=== PATIENT | female | born 1970 | race Two or more races ===

== ENCOUNTER → 2017-06-28 | Outpatient (CLI) | payer BC | END | disposition home or self-care (01) | LOC: MAMMO 09:48 | DX: R92.8 Other abnormal and inconclusive findings on diagnostic imaging of breast (principal); N64.4 Mastodynia | CPT/HCPCS: 77066 ==

== ENCOUNTER 2017-07-28 11:35 | Emergency (ER) | payer BC | END 2017-07-28 13:08 | disposition home or self-care (01) | LOC: ER 11:35 | DX: S69.91XA Unspecified injury of right wrist, hand and finger(s), initial encounter (principal); X58.XXXA Exposure to other specified factors, initial encounter; Y93.89 Activity, other specified; Y92.89 Other specified places as the place of occurrence of the external cause; Y99.8 Other external cause status | CPT/HCPCS: 29130; 73140; 99284 ==

== ENCOUNTER → 2019-06-08 | Outpatient (CLI) | payer BC ==
[2017-07-28 11:47] VITALS: BP 132/86
--- NOTE | 2019-06-08 13:56 | RAD ---
ANKLE LEFT 3V DATE: 06/08/2019 12:00 AM INDICATION: Pain after falling COMPARISON: None. FINDINGS: Bones: There is no evidence of acute fracture or dislocation. Joints: The ankle mortise is congruent. No widening of the distal tibiofibular syndesmosis. Miscellaneous: None. IMPRESSION: No evidence of acute fracture. Electronically signed by: Zeferino Matta MD (06/08/2019 1:53 PM) [id number]
--- NOTE | 2019-06-08 14:23 | RAD ---
PROCEDURE: SHOULDER 2+V LEFT, KNEE LEFT 3V STUDY DATE: 06/08/2019 CLINICAL INDICATION / HISTORY: Left shoulder pain after fall 2 days ago.. TECHNIQUE: AP internal and external rotation views with a Y- view were obtained. COMPARISON: None FINDINGS: No fracture, dislocation or bone destruction is identified. There are no degenerative changes at the left AC joint. No calcifications are seen in relation to the rotator cuff insertion. IMPRESSION: No acute osseous abnormality PROCEDURE: SHOULDER 2+V LEFT, KNEE LEFT 3V STUDY DATE: 06/08/2019 CLINICAL INDICATION / HISTORY: Left knee pain after fall 2 days ago. TECHNIQUE: AP, lateral, and tunnel views of the left knee. COMPARISON: None FINDINGS: The osseous structures are intact. The articular surfaces are smooth. The joint space is maintained. No intra-articular loose bodies. The alignment is within normal limits. The soft tissues are unremarkable. No obvious joint effusion. No radio-opaque foreign bodies are identified. IMPRESSION: No fracture or dislocation is identified. Electronically signed by: Megan Orr MD (06/08/2019 2:21 PM) [id number]
== END | disposition home or self-care (01) ==
LOC: RAD 11:10
PROVIDERS: ATTEND Internal Medicine
DX: M25.572 Pain in left ankle and joints of left foot (principal); M25.512 Pain in left shoulder; M25.562 Pain in left knee; W19.XXXA Unspecified fall, initial encounter; Y93.89 Activity, other specified; Y92.89 Other specified places as the place of occurrence of the external cause; Y99.8 Other external cause status
CPT/HCPCS: 73030; 73562; 73610

== ENCOUNTER → 2020-03-11 | Outpatient (CLI) | payer BC ==
[2017-07-28 11:47] VITALS: BP 132/86
--- NOTE | 2020-03-11 15:19 | RAD ---
DATE: 03/11/2020 9:13 AM EXAM: MAMMO ISMAEL SCREENING BILATERAL HISTORY: Screening COMPARISON: 06/28/2017 Bilateral CC and MLO views of the breasts were performed. Bilateral breast tomosynthesis was performed in CC and MLO projections. This study was interpreted with the benefit of Computerized Aided Detection (CAD). FINDINGS: Breast Density: SCATTERED The breast parenchyma shows scattered fibroglandular densities. Breast parenchyma level B No suspicious masses, microcalcifications or architectural distortion is present to suggest malignancy in either breast. The visualized axillae are unremarkable. IMPRESSION: No mammographic evidence of malignancy. BI-RADS CATEGORY: 1 NEGATIVE RECOMMENDED FOLLOW-UP: 12M 12 MONTH FOLLOW-UP Annual screening mammography is recommended, unless clinically indicated sooner based on symptoms or change in physical exam. PQRS compliance statement: Patient information was entered into a reminder system with a target due date for the next mammogram. Mammography is a sensitive method for finding small breast cancers, but it does not detect them all and is not a substitute for careful clinical examination. A negative mammogram does not negate a clinically suspicious finding and should not result in delay in biopsying a clinically suspicious abnormality. "Our facility is accredited by the [employer] Mammography Program."
== END ==
LOC: MAMMO 09:02
PROVIDERS: ATTEND Internal Medicine
DX: Z12.31 Encounter for screening mammogram for malignant neoplasm of breast (principal)
CPT/HCPCS: 77063; 77067

== ENCOUNTER → 2021-06-01 | Outpatient (CLI) | payer BC ==
[2017-07-28 11:47] VITALS: BP 132/86
--- NOTE | 2021-06-01 17:46 | RAD ---
Bilateral digital screening 2-D and 3-D (digital breast tomosynthesis) mammogram: Reason for examination: Routine screening. Comparison: Mammograms from 03/11/2020 and 06/28/2017. Interpretation was made with the benefit of CAD. FINDINGS: Breast density: Category A. Breast tissue is almost entirely fatty. No suspicious breast mass, malignant appearing calcifications, or architectural distortion is seen. T here is unchanged bilateral duct ectasia in the subareolar regions. IMPRESSION: No evidence of malignancy. Assessment: BI-RADS 1. Negative. Recommendation: Routine screening mammograms. The patient will receive a letter with the results in the mail. Patient information will be entered i nto the mammography reminder system with a target recall date for the next mammogram. A reminder [place] will be generated. Electronically signed by: Sonia Cox MD (06/01/2021 5:43 PM) [id number]
== END ==
LOC: MAMMO 15:41
PROVIDERS: ATTEND Internal Medicine
DX: Z12.31 Encounter for screening mammogram for malignant neoplasm of breast (principal)
CPT/HCPCS: 77063; 77067